=== PATIENT | female | born 1995 | race Two or more races ===

== ENCOUNTER 2019-03-16 11:09 | Emergency (ER) | payer OTHER ==
[~2019-03-16] VITALS: Ht 154.9 cm; Wt 58.1 kg
[2019-03-16] MEDS ORDERED: PROMETRIUM200 MG (11:37)
[2019-03-16] MEDS ORDERED: PRENATABS RX T1 EACH (11:38)
== END 2019-03-16 15:32 | disposition home or self-care (01) ==
LOC: ER 11:09
DX: O20.0 Threatened abortion (principal)

== ENCOUNTER 2019-03-21 09:47 | Outpatient (CLI) | payer OTHER ==
[~2019-03-21 09:47] MED LIST: PRENATABS RX T1 EACH; PROMETRIUM200 MG
== END 2019-03-21 09:55 | disposition home or self-care (01) ==
LOC: LAB 09:47
DX: Z34.00 Encounter for supervision of normal first pregnancy, unspecified trimester (principal)

== ENCOUNTER 2019-05-31 11:46 | Outpatient (CLI) | payer OTHER | END 2019-05-31 11:59 | disposition home or self-care (01) | LOC: LAB 11:46 | DX: Z34.00 Encounter for supervision of normal first pregnancy, unspecified trimester (principal) ==

== ENCOUNTER → 2019-06-20 | Outpatient (CLI) | payer OTHER | END | disposition home or self-care (01) | LOC: PRENATAL 12:25 | DX: O28.2 Abnormal cytological finding on antenatal screening of mother (principal); O35.0XX2 Maternal care for (suspected) central nervous system malformation in fetus, fetus 2; O35.3XX2 Maternal care for (suspected) damage to fetus from viral disease in mother, fetus 2 ==

== ENCOUNTER → 2019-08-14 | Outpatient (CLI) | payer OTHER | END | disposition home or self-care (01) | LOC: PRENATAL 10:00 | DX: O28.1 Abnormal biochemical finding on antenatal screening of mother (principal); O26.843 Uterine size-date discrepancy, third trimester ==

== ENCOUNTER 2019-08-21 09:53 | Outpatient (CLI) | payer OTHER | END 2019-08-21 10:01 | disposition home or self-care (01) | LOC: LAB 09:53 | DX: Z34.00 Encounter for supervision of normal first pregnancy, unspecified trimester (principal) ==

== ENCOUNTER 2019-10-15 09:55 | Inpatient (IN) | payer OTHER ==
[~2019-10-15] VITALS: Ht 154.9 cm; Wt 3.2 kg
[2019-10-29] MEDS ORDERED: PERCOCET 5-3251 EACH PO (07:28)
== END 2019-10-29 13:41 | DRG 788 ==
LOC: OB/GYN 10-26 12:22 → LDR 10-26 12:22 → OB/GYN 10-26 21:10
PROVIDERS: ADMIT Specialist; ATTEND Specialist
PROC: 4A0HXFZ Measurement of Products of Conception, Cardiac Rhythm, External Approach (ICD-10-PCS; 2019-10-26)
PROC: 10D00Z1 Extraction of Products of Conception, Low, Open Approach (ICD-10-PCS; principal; 2019-10-26 17:00)
DX: O33.9 Maternal care for disproportion, unspecified (principal); Z3A.39 39 weeks gestation of pregnancy; Z37.0 Single live birth